=== PATIENT | female | born 1965 | race Caucasian/White ===

== ENCOUNTER 2019-02-26 20:12 | Inpatient (IN) | payer OTHER ==
[~2019-02-26] VITALS: Ht 172.7 cm; Wt 64.5 kg
[2019-02-26] MEDS: CefTRIAXone 1 GM/DEXTROSE 50 ML IV SCH (00:30)
[2019-02-26 20:24] LABS: GLUCOSE,POINT OF CARE 161 MG/DL (70-110)
[2019-02-26] MEDS ORDERED: SODIUM CHLORIDE 0.9% 1,000 ML IV ONE ×2 (20:30→21:00)
[2019-02-26 20:50] LABS: APPEARANCE,URINE CLOUDY (CLEAR); GLUCOSE, URINE (UA) NEGATIVE (NEGATIVE); KETONES,URINE 40 mg/dL (NEGATIVE); LEUKOCYTE ESTERASE ,URINE MODERATE (NEGATIVE); NITRATE,URINE POSITIVE (NEGATIVE); OCCULT BLOOD,URINE NEGATIVE (NEGATIVE); PROTEIN,URINE NEGATIVE (NEGATIVE)
[2019-02-26 20:54] LABS: BILIRUBIN,URINE PRELIM. POSITIVE (NEGATIVE)
[2019-02-26 20:57] LABS: AMPHET/METH SCREEN,URINE NEGATIVE (NEGATIVE); BARBITURATE SCREEN, URINE NEGATIVE (NEGATIVE); BENZODIAZEPINES SCREEN,URINE NEGATIVE (NEGATIVE); CANNABINOID SCREEN,URINE NEGATIVE (NEGATIVE); COCAINE SCREEN,URINE NEGATIVE (NEGATIVE); METHADONE SCREEN, URINE NEGATIVE (NEGATIVE); OPIATE SCREEN,URINE NEGATIVE (NEGATIVE)
[2019-02-26 20:57] LABS: BASOPHILS % (AUTO) 1.1 % (0.0-2.0); EOSINOPHILS % (AUTO) 0 % (1.0-6.0); LYMPHOCYTES # (AUTO) 2.5 K/uL (1.0-4.8); LYMPHOCYTES % (AUTO) 13.5 % (22.0-44.0); MEAN CORPUSCULAR HEMOGLOBIN 34.8 pg (26.0-34.0); MEAN CORPUSCULAR HGB CONC 30.2 G/dL (31.0-37.0); MEAN CORPUSCULAR VOLUME 115 fL (80-100); MONOCYTES # (AUTO) 1.6 K/uL (0.1-1.0); MONOCYTES % (AUTO) 8.5 % (2.0-9.0); NEUTROPHILS # (AUTO) 14.5 K/uL (1.8-7.7); NEUTROPHILS % (AUTO) 76.9 % (40.0-70.0); PLATELET COUNT (AUTO) 108 K/uL (150-450); RED BLOOD CELL COUNT(AUTO) 1.24 MIL/uL (4.00-5.20); RED CELL DISTRIBUTION WIDTH 23.3 % (11.5-14.5)
[2019-02-26 20:59] LABS: PHENCYCLIDINE SCREEN,URINE NEGATIVE (NEGATIVE)
[2019-02-26 21:06] LABS: HEMATOCRIT 14.3 % (36-46); HEMOGLOBIN 4.3 g/dL (12.0-16.0)
[2019-02-26 21:09] LABS: BACTERIA,URINE Few /HPF (None Seen); RBC,URINE 0-2 /HPF (0-2); SQUAMOUS EPITHELIAL CELL,UR Moderate /LPF (None Seen)
[2019-02-26 21:13] LABS: INR 2.6 (0.9-1.1); PROTHROMBIN TIME 26.5 SEC (9.4-11.6)
[2019-02-26 21:14] LABS: AMMONIA 115 umol/L (11-32)
[2019-02-26 21:15] LABS: TROPONIN I < 0.02 ng/mL (0.00-0.05)
[2019-02-26 21:21] LABS: ALANINE AMINOTRANSFERASE 9 U/L (12-78); ALKALINE PHOSPHATASE 116 U/L (46-116); ANION GAP 19 mmol/L (8-16); ASPARTATE AMINOTRANSFERASE 87 U/L (15-37); BILIRUBIN,TOTAL 7.4 mg/dL (0.1-1.0); CALCIUM, TOTAL 7.4 mg/dL (8.8-10.5); CARBON DIOXIDE 18 mmol/L (22-29); CHLORIDE 105 mmol/L (98-107); CREATININE 1.01 mg/dL (0.60-1.30); GLOMERULAR FILTR. RATE CALC 58 mL/min (>60); GLUCOSE,RANDOM 166 mg/dL (70-110); HCG,QUANTITATIVE 1 mIU/mL (0-6); POTASSIUM 3.9 mmol/L (3.5-5.1); SODIUM SERUM 142 mmol/L (136-145)
[2019-02-26 21:26] LABS: PATHOLOGY REVIEW, DIFF YES
[2019-02-26 21:31] LABS: LACTIC ACID 11.2 mmol/L (0.4-2.0)
[2019-02-26 21:34] LABS: SALICYLATE < 2.8 mg/dL (2.8-20.0)
[2019-02-26 21:37] LABS: ACETAMINOPHEN < 2 mcg/mL (10-30)
[2019-02-26 21:42] LABS: UREA NITROGEN, BLOOD 20 mg/dL (7-18)
[2019-02-26 22:05] VITALS: BP 94/62
[2019-02-26 22:20] VITALS: BP 90/54
[2019-02-26] MEDS ORDERED: LORazepam 2 MG/ML VIAL IVP PRN (22:30)
[2019-02-26 22:35] VITALS: BP 118/54
[2019-02-26] MEDS: OCTREOTIDE ACETATE 500 MCG in DEXTROSE 5%-WATER 97.5 ML IV SCH (22:38)
[2019-02-26] MEDS: PANTOPRAZOLE SODIUM 80 MG in SODIUM CHLORIDE 0.9% 100 ML IV SCH (22:38)
[2019-02-26 23:05] VITALS: BP 106/57
[2019-02-26 23:35] VITALS: BP 91/52
[2019-02-26 23:45] VITALS: BP 99/57
[2019-02-27] VITALS (22 sets, daily range): BP systolic 89–126; BP diastolic 34–60
[2019-02-27] MEDS: CefTRIAXone 1 GM/DEXTROSE 50 ML IV SCH (00:30)
[2019-02-27 03:35] LABS: BASOPHILS % (AUTO) 0.7 % (0.0-2.0); EOSINOPHILS % (AUTO) 0 % (1.0-6.0); HEMATOCRIT 22.1 % (36-46); LYMPHOCYTES # (AUTO) 2.3 K/uL (1.0-4.8); MEAN CORPUSCULAR HEMOGLOBIN 34.6 pg (26.0-34.0); MEAN CORPUSCULAR HGB CONC 32.7 G/dL (31.0-37.0); MEAN CORPUSCULAR VOLUME 106 fL (80-100); MONOCYTES # (AUTO) 1.4 K/uL (0.1-1.0); MONOCYTES % (AUTO) 7.1 % (2.0-9.0); NEUTROPHILS # (AUTO) 15.4 K/uL (1.8-7.7); NEUTROPHILS % (AUTO) 80.2 % (40.0-70.0); PLATELET COUNT (AUTO) 86 K/uL (150-450); RED BLOOD CELL COUNT(AUTO) 2.09 MIL/uL (4.00-5.20)
[2019-02-27 03:45] LABS: HEMOGLOBIN 7.2 g/dL (12.0-16.0)
[2019-02-27 03:46] LABS: CALCIUM, TOTAL 7.2 mg/dL (8.8-10.5); CREATININE 1.03 mg/dL (0.60-1.30); POTASSIUM 4.2 mmol/L (3.5-5.1)
[2019-02-27 03:52] LABS: TOTAL PROTEIN, SERUM 6.2 g/dL (6.4-8.2)
[2019-02-27] MEDS ORDERED: SODIUM CHLORIDE 0.9% 1,000 ML IV ONE (04:30)
[2019-02-27 07:19] LABS: GLUCOSE,POINT OF CARE 182 MG/DL (70-110)
[2019-02-27] MEDS: OCTREOTIDE ACETATE 500 MCG in DEXTROSE 5%-WATER 97.5 ML IV SCH ×2 (07:57→17:19)
[2019-02-27] MEDS: PANTOPRAZOLE SODIUM 80 MG in SODIUM CHLORIDE 0.9% 100 ML IV SCH ×2 (07:57→17:18)
[2019-02-27] MEDS ORDERED: LACTULOSE 20 GM/30 ML SOLUTION UDCUP PO SCH ×2 (08:00→12:00)
[2019-02-27] MEDS ORDERED: DEXTROSE 5%-WATER 1,000 ML IV ONE (08:00)
[2019-02-27] MEDS: PHYTONADIONE 10 MG/1 ML AMP PO SCH (08:29)
[2019-02-27] MEDS: ALBUMIN HUMAN 25%-25GM/100ML 100 ML IV SCH ×2 (10:24→19:43)
[2019-02-27] MEDS ORDERED: LACTULOSE 20 GM/30 ML SOLUTION UDCUP PO PRN (10:45)
[2019-02-27] MEDS ORDERED: EPINEPHrine 1:10,000 [1 MG/10 ML] SYRINGE ONE (13:53)
[2019-02-27 15:04] LABS: INR 2.4 (0.9-1.1); PROTHROMBIN TIME 23.9 SEC (9.4-11.6)
[2019-02-27 15:05] LABS: HEMATOCRIT 17.5 % (36-46); HEMOGLOBIN 5.7 g/dL (12.0-16.0)
[2019-02-27] MEDS ORDERED: SODIUM CHLORIDE 0.9% 250 ML IV ONE (15:42)
[2019-02-27] MEDS: PENTOXIFYLLINE 400 MG DR TABLET PO SCH ×2 (17:18→20:45)
[2019-02-28] VITALS (11 sets, daily range): BP systolic 96–113; BP diastolic 38–50
[2019-02-28 00:57] LABS: HEMATOCRIT 19.9 % (36-46); HEMOGLOBIN 6.6 g/dL (12.0-16.0)
[2019-02-28] MEDS: ALBUMIN HUMAN 25%-25GM/100ML 100 ML IV SCH ×2 (01:15→11:12)
[2019-02-28] MEDS ORDERED: SODIUM CHLORIDE 0.9% 250 ML IV ONE (01:45)
[2019-02-28] MEDS: OCTREOTIDE ACETATE 500 MCG in DEXTROSE 5%-WATER 97.5 ML IV SCH ×2 (03:46→14:41)
[2019-02-28] MEDS: PANTOPRAZOLE SODIUM 80 MG in SODIUM CHLORIDE 0.9% 100 ML IV SCH ×2 (03:46→14:40)
[2019-02-28 06:44] LABS: BASOPHILS % (AUTO) 0.4 % (0.0-2.0); EOSINOPHILS % (AUTO) 0.1 % (1.0-6.0); HEMATOCRIT 23.5 % (36-46); HEMOGLOBIN 7.9 g/dL (12.0-16.0); LYMPHOCYTES # (AUTO) 2.7 K/uL (1.0-4.8); LYMPHOCYTES % (AUTO) 21.4 % (22.0-44.0); MEAN CORPUSCULAR HEMOGLOBIN 31.7 pg (26.0-34.0); MEAN CORPUSCULAR HGB CONC 33.7 G/dL (31.0-37.0); MEAN CORPUSCULAR VOLUME 94 fL (80-100); MONOCYTES # (AUTO) 0.9 K/uL (0.1-1.0); MONOCYTES % (AUTO) 7.4 % (2.0-9.0); NEUTROPHILS # (AUTO) 8.8 K/uL (1.8-7.7); NEUTROPHILS % (AUTO) 70.7 % (40.0-70.0); RED CELL DISTRIBUTION WIDTH 18.4 % (11.5-14.5)
[2019-02-28 06:54] LABS: INR 1.8 (0.9-1.1); PROTHROMBIN TIME 18.8 SEC (9.4-11.6)
[2019-02-28 07:21] LABS: ALANINE AMINOTRANSFERASE 14 U/L (12-78); ALBUMIN 2.5 g/dL (3.4-5.0); ALKALINE PHOSPHATASE 85 U/L (46-116); ANION GAP 13 mmol/L (8-16); ASPARTATE AMINOTRANSFERASE 66 U/L (15-37); BILIRUBIN,TOTAL 9.8 mg/dL (0.1-1.0); CALCIUM, TOTAL 7.6 mg/dL (8.8-10.5); CARBON DIOXIDE 24 mmol/L (22-29); CHLORIDE 109 mmol/L (98-107); GLOMERULAR FILTR. RATE CALC > 60 mL/min (>60); GLUCOSE,RANDOM 148 mg/dL (70-110); SODIUM SERUM 146 mmol/L (136-145); TOTAL PROTEIN, SERUM 6.4 g/dL (6.4-8.2); UREA NITROGEN, BLOOD 20 mg/dL (7-18)
[2019-02-28 07:23] LABS: POTASSIUM 2.9 mmol/L (3.5-5.1)
[2019-02-28] MEDS ORDERED: POTASSIUM CHLORIDE 10% 40 MEQ/30 ML LIQUID UDCUP NG PRN (07:45)
[2019-02-28] MEDS ORDERED: POTASSIUM CHLORIDE 20 MEQ ER TABLET PO PRN (07:45)
[2019-02-28 08:37] LABS: PLATELET COUNT (AUTO) 62 K/uL (150-450)
[2019-02-28] MEDS: PENTOXIFYLLINE 400 MG DR TABLET PO SCH ×3 (09:01→17:30)
[2019-02-28] MEDS: POTASSIUM CHL 10 MEQ/WATER 50 ML IV PRN ×3 (09:01→13:15)
[2019-02-28] MEDS: PHYTONADIONE 10 MG/1 ML AMP PO SCH (09:03)
[2019-02-28] MEDS ORDERED: MULTIVITAMINS WITH MINERALS, THERAPEUTIC TABLET PO SCH (09:15)
[2019-02-28] MEDS ORDERED: DEXTROSE 5%-WATER 1,000 ML IV ONE (09:15)
[2019-02-28] MEDS ORDERED: MAGNESIUM SULFATE 2 GM/WATER 50 ML IV PRN (09:30)
[2019-02-28] MEDS ORDERED: MAGNESIUM OXIDE 400 MG TABLET PO PRN (09:30)
[2019-02-28] MEDS ORDERED: MAGNESIUM SULFATE 4 GM/WATER 100 ML IV PRN (09:30)
[2019-02-28 09:36] LABS: PHOSPHORUS 3.1 mg/dL (2.5-4.9)
[2019-02-28] MEDS ORDERED: LACTULOSE 20 GM/30 ML SOLUTION UDCUP PO PRN (13:15)
[2019-02-28 15:04] LABS: HEMATOCRIT 26.2 % (36-46); HEMOGLOBIN 8.8 g/dL (12.0-16.0)
== END 2019-02-28 17:20 | disposition short-term general hospital (02) | DRG 377 ==
LOC: EMS 20:14 → ICUN 02-27 11:45
PROVIDERS: ADMIT Internal Medicine; ATTEND Internal Medicine
PROC: 30233K1 Transfusion of Nonautologous Frozen Plasma into Peripheral Vein, Percutaneous Approach (ICD-10-PCS; 2019-02-27)
PROC: 30233N1 Transfusion of Nonautologous Red Blood Cells into Peripheral Vein, Percutaneous Approach (ICD-10-PCS; 2019-02-27)
PROC: 0W3P8ZZ Control Bleeding in Gastrointestinal Tract, Via Natural or Artificial Opening Endoscopic (ICD-10-PCS; principal; 2019-02-27 13:00)
DX: K25.4 Chronic or unspecified gastric ulcer with hemorrhage (principal); E43 Unspecified severe protein-calorie malnutrition; D68.9 Coagulation defect, unspecified; E87.0 Hyperosmolality and hypernatremia; K70.30 Alcoholic cirrhosis of liver without ascites; K29.61 Other gastritis with bleeding; K72.90 Hepatic failure, unspecified without coma; D64.9 Anemia, unspecified; K70.10 Alcoholic hepatitis without ascites; K29.80 Duodenitis without bleeding; E87.6 Hypokalemia; F10.20 Alcohol dependence, uncomplicated; Z68.21 Body mass index [BMI] 21.0-21.9, adult
CPT/HCPCS: 82105; 82271; 82948; 83605; 83735; 84100; 85014; 85018; 86850; 86900; 86901; 86920; 86927; 87040; 87081; 93005; 96365; 99291; C9113; G0378; G0480; G0481; J0171; J0696; J2060; J2354; J3430; J3475; J3480; J7030; J7050; J7060; P9016; P9017; P9046